=== PATIENT | female | born 1960 | race Caucasian/White ===

== ENCOUNTER 2017-06-04 08:34 | Emergency (ER) | payer BC ==
[2017-06-04] MEDS ORDERED: Famotidine IV* 10 MG/ML 2 ML (20 mg) IV SLOW PU ONE (09:16)
[2017-06-04] MEDS ORDERED: methylPREDNISolone 125 MG* 2 ML VIAL IV ONE (09:16)
[2017-06-04] MEDS ORDERED: NS 0.9% 1000 ML* 1,000 ML IV ONE (09:17)
[2017-06-04] MEDS ORDERED: Cephalexin CAP* 500 MG PO ONE (09:23)
[2017-06-04 11:13] VITALS: BP 135/81
--- NOTE | 2017-06-07 22:51 | ED ---
Bala Sharma Salem, scribed for Vega Cantrell MD on 06/04/17 at 0920 . Skin Complaint - HPI Summary HPI Summary: Patient is a 56 y/o F who presents to the ED with right-sided facial swelling since 3 days ago, worse since. She states that she was picking blackberries when she got into [employer]. She states that she has been taking Benadryl every 4 hours, using ice, and oatmeal compresses as well as rubbing various things into it with little to no alleviation. She denies pruritus, but reports drainage. She reports a history of reaction to poison matt as a child. Pt drove to the ED on her own. - History of Current Complaint Chief Complaint: EDRashSkinAbscess Time Seen by Provider: 06/04/17 08:59 Stated Complaint: FACIAL SWELLING/POSS POISION MATT Hx Obtained From: Patient Onset/Duration: Started Days Ago, Atraumatic, Still Present Skin Exposure Onset/Duration: Days Ago Timing: Constant, Lasting Days Current Severity: Moderate Pain Intensity: 0 Pain Scale Used: 0-10 Numeric Skin Location: Face, Hand Character: Swelling, Redness Aggravating Symptom(s): Nothing Alleviating Symptom(s): Nothing Associated Signs & Symptoms: Negative Related History: Possible Reaction to: Environmental Exposure - Allergy/Home Medications Allergies/Adverse Reactions: Allergies Allergy/AdvReac Type Severity Reaction Status Date / Time No Known Allergies Allergy Verified 06/04/17 08:54 PMH/Surg Hx/FS Hx/Imm Hx Previously Healthy: Yes - Cancer History Hx Chemotherapy: No Hx Radiation Therapy: No Infectious Disease History: Denies: Traveled Outside the [place] in Last 30 Days - Family History Known Family History: Negative: Hypertension - Social History Alcohol Use: Occasionally Hx Substance Use: No Substance Use Type: Reports: None Hx Tobacco Use: No Smoking Status (MU): Never Smoked Tobacco Review of Systems Negative: Fever, Chills Negative: Erythema Negative: Sore Throat Negative: Chest Pain Negative: Shortness Of Breath, Cough Negative: Abdominal Pain, Vomiting, Nausea Negative: dysuria, hematuria Negative: Myalgia, Edema Positive: Other - Pruritus. Drainage. Facial swelling. . Negative: Rash Neurological: Other - No dizziness. All Other Systems Reviewed And Are Negative: Yes Physical Exam - Summary Physical Exam Summary: Constitutional: Well-developed, Well-nourished, Alert. (-) Distressed Skin: Warm, Dry. Right facial erythema with vesicles that are honey crusted. HENT: Normocephalic; Atraumatic. External ear: External auditory canal is clear. Angioedema of right and lower eye lid. Eyes: Conjunctiva normal. No conjunctivitis. No lymphedema or lymphadenopathy. Neck: Musculoskeletal ROM normal neck. (-) JVD, (-) Stridor, (-) Tracheal deviation Cardio: Rhythm regular, rate normal, Heart sounds normal; Intact distal pulses; The pedal pulses are 2+ and symmetric. Radial pulses are 2+ and symmetric. (-) Murmur Pulmonary/Chest wall: Effort normal. (-) Respiratory distress, (-) Wheezes, (-) Rales Abd: Soft, (-) Tenderness, (-) Distension, (-) Guarding, (-) Rebound Musculoskeletal: (-) Edema Lymph: (-) Cervical adenopathy Neuro: Alert, Oriented x3 Psych: Mood and affect Normal Triage Information Reviewed: Yes Vital Signs On Initial Exam: Initial Vitals Temp Pulse Resp BP Pulse Ox 97 F 80 19 132/85 100 06/04/17 08:51 06/04/17 08:51 06/04/17 08:51 06/04/17 08:51 06/04/17 08:51 Vital Signs Reviewed: Yes Diagnostics - Vital Signs Vital Signs Temp Pulse Resp BP Pulse Ox 06/04/17 08:51 97 F 80 19 132/85 100 - Laboratory Lab Statement: Any lab studies that have been ordered have been reviewed, and results considered in the medical decision making process. Re-Evaluation - Re-Evaluation First Eval Re-Evaluation Time: 10:10 Change: Unchanged Comment: Re-evaluated. Second Eval Re-Evaluation Time: 10:42 Comment: Discussed plan. Course/Dx - Course Course Of Treatment: 56 y/o F presents with right-sided facial swelling since 3 days ago, worse since s/p getting into [employer]. She denies pruritus, but reports drainage. Pt received fluids, Keflex, Pepcid, and Solu-MEDROL in the ED course. Pt is stable and will be DC'd. - Diagnoses Provider Diagnoses: Angioedema, Facial cellulitis, Contact dermatitis Discharge - Discharge Plan Condition: Stable Disposition: HOME Prescriptions: Cephalexin CAP* [Keflex CAP*] 500 mg PO QID #28 cap Loratadine 10 mg PO DAILY #7 cap predniSONE TAB* [Deltasone TAB*] 40 mg PO DAILY #5 tab Patient Education Materials: Cellulitis (ED), Angioedema (ED), Contact Dermatitis (ED) Referrals: Jazlyn Scherer MD [Primary Care Provider] - Additional Instructions: Please follow up with your primary care provider in a couple of days. RETURN TO THE EMERGENCY DEPARTMENT FOR CHANGING OR WORSENING SYMPTOMS. The documentation as recorded by the Bala haskins Salem accurately reflects the service I personally performed and the decisions made by , Vega Cantrell MD.
== END 2017-06-04 11:00 | disposition home or self-care (01) ==
LOC: ED 08:34
DX: L03.211 Cellulitis of face (principal); L25.9 Unspecified contact dermatitis, unspecified cause; R60.9 Edema, unspecified
CPT/HCPCS: 99281; A9270-GY; J2930